=== PATIENT | male | born 1950 | race Caucasian/White ===

== ENCOUNTER 2019-12-16 08:44 | Emergency (ER) | payer MEDICARE, OTHER, SELFPAY ==
--- NOTE | ~2019-12-16 | CT_ITS ---
EXAMINATION: CT brain wo con DATE: 12/16/2019 08:53 INDICATION: Stroke presenting with right hemiparesis and facial droop. TECHNIQUE: Computed tomography (CT) of the head was performed without intravenous contrast. Sagittal and coronal reconstructions were performed. The mA was adjusted according to patient size. Iterative reconstruction technique was employed. The dose-length product was 681.00 mGy-cm. COMPARISON: None FINDINGS: No acute intracranial hemorrhage or abnormal extra axial fluid collection. No loss of cosby-white moises er differentiation to suggest acute infarction however there is hyperdense left MCA sign consistent w ith thrombus near the bifurcation of the anterior and posterior branches which appears to extend into the posterior branch. There is mild scattered white matter hypoattenuation consistent with chronic s mall vessel ischemic disease. Ventricles are normal and symmetric. No mass/mass effect. Changes of ri ght intraocular lens replacement. The orbits, paranasal sinuses and mastoid air cells are normal. IMPRESSION: 1. Hyperdense left MCA sign suspicious for thrombus in consistent with clinical history of stroke wit h right hemiparesis although no vasogenic edema is evident for confirmation of stroke which may be du e to hyperacute state. No intracranial hemorrhage. Dr. Avitia discussed these findings with Dr. David alvarado at 9:00 AM. Reviewed, dictated and finalized at location A. IMPRESSION: 1. Hyperdense left MCA sign suspicious for thrombus in consistent with clinical history of stroke with right hemiparesis although no vasogenic edema is eviden t for confirmation of stroke which may be due to hyperacute state. No intracran ial hemorrhage. Dr. Avitia discussed these findings with Dr. Lee at 9:00 AM.
--- NOTE | ~2019-12-16 | XR_ITS ---
XR chest 1V portable 12/16/2019 09:06 Indication: Acute CVA. Dyspnea. Procedure: AP portable chest Comparison: Comparison to multiple prior studies sequentially, with oldest reviewed study dated 04/2012. Findings: Cardiomegaly. Pacemaker leads in expected position. Interval development of mild interstiti al edema. No pleural effusion or pneumothorax. No acute osseous abnormality. Impression: 1: Cardiomegaly with mild interstitial edema. Pneumonia less favored. Reviewed, dictated and finalized at location A. Impression: 1: Cardiomegaly with mild interstitial edema. Pneumonia less favored.
--- NOTE | 2019-12-16 08:49 | ECG_ITS ---
Measurements Intervals Prospect Rate: 66 P: 226 NV: 124 QRS: -71 QRSD: 130 T: 110 QT: 404 QTc: 424 Interpretive Statements ATRIAL SENSE- ELECTRONIC VENTRICULAR PACEMAKER BASELINE WANDER- I, II, AVR, V1-V6 NO FURTHER INTERPRETATION IS POSSIBLE ATYPICAL ECG Electronically Signed On 12-16-2019 9:00:20 CDT by David Parrish D.O.
[2019-12-16 08:55] VITALS: BP 136/87; PULSE 69; RESP 18; TEMP 36.5; O2SAT 98
[2019-12-16 08:59] LABS: Glucose Point of Care 240 (65-105)
[2019-12-16 09:00] VITALS: BP 129/84; PULSE 69; RESP 20; O2SAT 98
--- NOTE | 2019-12-16 09:01 | ED.NEUROSD ---
HPI - Neuro Symptoms/Deficit General Chief Complaint: Suspected CVA Stated Complaint: ?CVA Time Seen by Provider: 12/16/19 08:47 History of Present Illness HPI Narrative: Patient is a 69-year-old male who presents ER with strokelike symptoms. Patient was sitting at home at 730 reading the paper when he noticed new weakness and speech difficulty. Neighbors came to check on him and found him on the floor and called EMS. For EMS patient continues to have right sided weakness as well as right facial droop and slurred speech. Patient takes aspirin 325 but is on no other blood thinners. No previous CVA per family. Related Data Home Medications Medication Instructions Recorded Confirmed albuterol sulfate 2 puff INHALATION QID PRN 12/16/19 amlodipine 5 mg PO DAILY 12/16/19 aspirin 81 mg PO DAILY 12/16/19 atorvastatin 20 mg PO DAILY 12/16/19 carvedilol 25 mg PO BID 12/16/19 cholecalciferol (vitamin D3) 50 mcg PO DAILY 12/16/19 finasteride 5 mg PO DAILY 12/16/19 fluticasone propionate 2 spray INTRANASAL DAILY 12/16/19 isosorbide mononitrate mg PO 12/16/19 metformin 1,000 mg PO BID 12/16/19 phenylephrine HCl [Sudafed PE] 10 mg PO Q4-6H PRN 12/16/19 spironolactone 25 mg PO DAILY 12/16/19 tiotropium bromide [Spiriva 2 puff INHALATION DAILY 12/16/19 Respimat] valsartan 160 mg PO BID 12/16/19 Allergies Allergy/AdvReac Type Severity Reaction Status Date / Time No Known Allergies Allergy Unverified 07/16/18 23:04 Review of Systems Review of Systems: Narrative: Able to give some answers to review of systems however it is somewhat limited due to a mild expressive aphasia. Constitutional: Constitutional: Denies chills, Denies fever(s) and Denies weakness ENT: Denies nasal congestion and Denies sore throat Cardiovascular: Cardiovascular: Denies chest pain Neurologic: Reports focal weakness and Reports numbness PMFSH Past Medical History Medical History (Updated 12/16/19 @ 09:24 by Álvaro Lee MD) Complete heart block History of CHF (congestive heart failure) Hypertension Myocardial infarction Surgical History Surgical History (Updated 12/16/19 @ 09:19 by Álvaro Lee MD) AICD (automatic cardioverter/defibrillator) present Pacemaker Social History Social History (Updated 12/16/19 @ 09:20 by Álvaro Lee MD) Social History: Non-smoker Substance use type: marijuana Exam Narrative: Exam Narrative: GENERAL: Well-appearing, obese, and in no acute distress. HEAD: Normocephalic, atraumatic. EYES: PERRL and EOMI. ENT: Mucous membranes moist. CHEST: Clear to auscultation. No respiratory distress. HEART: Regular rate and rhythm. Normal peripheral pulses. ABDOMEN: Soft, nontender, nondistended. EXTREMITIES: Normal range of motion. + edema. SKIN: Warm, dry, no rash. NEURO: See quality portion of chart with NIH stroke scale. Right upper extremity drift for the arm falls down to the bed. There is slight drift in the right lower extremity. Patient unable to perform finger-nose testing or [id number]-[id number] testing on the right side. There is right facial paralysis where he cannot turn up the right lip. He can slightly close the right eye. He is able to lift his eyebrows without issue. No other cranial nerve deficit deficit noted. Sharp touch deficit in the right upper and right lower extremity. There is slight dysarthria and mild expressive aphasia. Alert and oriented x2 but this is likely limited due to patient's expressive aphasia. Course Course Emergency Course: Discussed the case with [facility] stroke team physician Dr. Corona. Recommends TPA. Patient's family member present and has allowed me to talk to the patient's brother who will be acting his POA. He also would like the patient received TPA and patient himself would like to have the blood thinning medication. Risk of bleeding understood. Dr. Mendez in the ER has accepted the patient for transfer. We are contacting EMS for tr
[2019-12-16 09:11] LABS: Basophils Absolute Auto 0.1 K/mm3 (0.0-0.1); Basophils Percent Auto 0.9 % (0.2-1.2); Eosinophils Absolute Auto 0.3 K/mm3 (0-0.3); Eosinophils Percent Auto 4.4 % (0-4.4); Hematocrit 38.4 % (42.0-52.0); Hemoglobin 12.5 g/dL (14.0-18.0); Immature Granulocyte Absolute 0.04 K/mm3 (0.00-0.031); Immature Granulocyte Percent A 0.7 % (0-0.5); Immature Platelet Fraction Pct 3.9 % (0.9-11.2); Lymphocytes Absolute Auto 1.69 K/mm3 (0.9-3.2); Lymphocytes Percent Auto 29.9 % (18.3-44.2); Mean Corpuscular HGB Conc 32.6 g/dl (32-36); Mean Corpuscular Hemoglobin 30.8 pg (26-34); Mean Corpuscular Volume 94.6 fl (80-100); Mean Platelet Volume 11.7 fl (7.4-10.4); Monocytes Absolute Auto 0.4 K/mm3 (0.1-0.6); Monocytes Percent Auto 6.9 % (2.6-8.5); Neutrophils Absolute Auto 3.2 K/mm3 (1.3-6.7); Neutrophils Percent Auto 57.2 % (45.5-73.1); Platelet Count Result 122 k/mm3 (150-375); Red Blood Count 4.06 M/mm3 (4.6-6.20); Red Cell Distribution Width 13.9 % (11.5-14.5); White Blood Count 5.7 K/mm3 (4.5-10.0)
[2019-12-16 09:19] LABS: Blood Urea Nitrogen 19 mg/dL (9-20); Calcium 9.4 mg/dL (8.4-10.2); Carbon Dioxide 25 mmol/L (22-30); Chloride 103 mmol/L (98-107); Estimated CRCL calculation 66 ml/min; Estimated Glomerular Filt Rate > 60; Glucose 236 mg/dL (75-110); Potassium 4.7 mmol/L (3.4-5.0); Sodium 137 mmol/L (137-145)
--- NOTE | 2019-12-16 09:19 | PC.NURSE ---
9 mg bolus of TPA given IVP. 81 mg started via IV infusion. Family and patient aware of risks and agree.
[2019-12-16 09:20] VITALS: BP 125/78; PULSE 64; RESP 20; O2SAT 98
[2019-12-16 09:20] LABS: INR 1.1; Prothrombin Time 14.3 Seconds (11.1-14.7)
[2019-12-16 09:21] LABS: Partial Thromboplastin Time 26.4 SECONDS (22.3-36.8)
[2019-12-16 09:22] VITALS: BP 125/78; PULSE 63; RESP 20
--- NOTE | 2019-12-16 09:25 | PC.NURSE ---
report given to [facility] Ed RN Lucio at this time.
[2019-12-16 09:30] LABS: Troponin I 0.013 ng/mL (0.000-0.034)
[2019-12-16 09:41] VITALS: BP 121/79; PULSE 63; RESP 20; O2SAT 98
== END 2019-12-16 09:44 | disposition short-term general hospital (02) ==
PROVIDERS: Emergency Provider Emergency Medicine
DX: I63.512 Cerebral infarction due to unspecified occlusion or stenosis of left middle cerebral artery (principal); R29.712 NIHSS score 12; I25.2 Old myocardial infarction; I50.9 Heart failure, unspecified; I11.0 Hypertensive heart disease with heart failure; I51.7 Cardiomegaly; Z95.810 Presence of automatic (implantable) cardiac defibrillator; Z79.82 Long term (current) use of aspirin; Z79.84 Long term (current) use of oral hypoglycemic drugs
CPT/HCPCS: 36415; 37195; 70450; 71045; 80048; 82948; 84484; 85025; 85055; 85610; 85730; 93005; 99291; J2997

== ENCOUNTER 2020-01-27 13:40 | Outpatient (CLI) | payer OTHER, MEDICARE, SELFPAY ==
--- NOTE | ~2020-01-27 | XR_ITS ---
EXAMINATION: XR barium swallow modified DATE: 01/27/2020 14:30 INDICATION: Dysphagia. TECHNIQUE: The patient was given barium-containing material of multiple consistencies to swallow by t karla speech pathologist while I performed fluoroscopy. Fluoroscopy exposure time was 2.5 minutes. The n umber of fluoroscopy images saved to the PACS was 1. Dose-area product was 2.818 Gy-cm^2. FINDINGS: There is decreased dentition with subsequent slowed mastication. There is delayed pharyngeal swallow as evidenced by pooling in the pyriform sinus. There is the possibility of micro laryngeal penetratio n. No aspiration. IMPRESSION: 1. Possible micro laryngeal penetration. No aspiration. 2. Please refer to the speech therapy report for recommendations. Reviewed, dictated and finalized at location A.
--- NOTE | 2020-01-28 08:51 | STOPEVAL ---
Modified Barium Swallow: Thank you for referring Kevin London to [facility]. Attending Provider: Matthew Ruelas MD Referring Provider: EMIR Outpatient Evaluation: [facility] Start: 01/27/20 18:13 Freq: Status: Discharge Protocol: Document 01/27/20 14:00 BECHERERT (Rec: 01/27/20 18:14 BECHERERT [email or web address]) Therapy Assessment Status Assessment Status Assessment Status Evaluation Outpatient Past Medical History Past Medical History Source of Past Medical History Other Neurological History Hx Cerebrovascular Accident (CVA) Yes: DYSPHAGIA AND APHASIA Pain Assessment Timing of Pain Assessment Timing of Pain Assessment Assessment Self Report Self Report Pain Level 0 Pain Scale Pain Scale Used Numeric (1 - 10) Pain Score Pain Score 0: Self Report Modified Barium Swallow Evaluation Recent Swallowing History Reports Dysphagia Yes Reported Difficult Consistencies Unable to Identify Dentition Comments poor dentition Consistency Solid Consistency Method of Presentation Spoon Oral Preparatory Phase Comments very bolus formation Oral Phase Symptoms Slow Oral Transit Pharyngeal Phase Symptoms Within Functional Limits Severity of Vallecular Residue None - 0% No Residue Severity of Pyriform Sinus Residue None - 0% No Residue 8 Point Laryngeal Penetration-Aspiration Material Does Not Enter Airway Scale Pharyngeal Phase Comments slightly abnormal amount of time of which contents pooled in pyriform sinuses; potential aspiration risk Cervical/Esophageal Symptoms Within Functional Limits Mixed Consistency Method of Presentation Spoon Oral Preparatory Phase Comments slow bolus formation Oral Phase Symptoms Slow Oral Transit Severity of Vallecular Residue None - 0% No Residue Severity of Pyriform Sinus Residue None - 0% No Residue 8 Point Laryngeal Penetration-Aspiration Material Does Not Enter Airway Scale Pharyngeal Phase Comments slightly abnormal amount of time of which contents pooled in pyriform sinuses; potential aspiration risk Cervical/Esophageal Symptoms Within Functional Limits Pureed Consistency Method of Presentation Spoon Oral Preparatory Phase Comments slow bolus formation Oral Phase Symptoms Lingual Pumping,Slow Oral Transit Pharyngeal Phase Symptoms Within Functional Limits Severity of Vallecular Residue None - 0% No Residue Severity of Pyriform Sinus Residue None - 0% No Residue 8 Point Laryngeal Penetration-Aspiration Material Does Not Enter Airway Scale Cervical/Esophageal Symptoms Within Functional Limits
== END 2020-01-27 13:41 | disposition home or self-care (01) ==
PROVIDERS: Visit Provider Family Medicine
DX: R13.10 Dysphagia, unspecified (principal)
CPT/HCPCS: 92611